=== PATIENT | female | born 1995 | race Caucasian/White ===

== ENCOUNTER 2018-09-11 15:51 | Emergency (ER) | payer OTHER ==
[~2018-09-11] VITALS: Ht 165.1 cm; Wt 44.5 kg
[2018-09-11 16:05] VITALS: BP 119/68
[2018-09-11] MEDS ORDERED: METHOCARBAMOL 750 MG TABLET ONE (16:58)
[2018-09-11] MEDS ORDERED: METHOCARBAMOL 750 MG TABLET PO ONE (17:00)
== END 2018-09-11 17:30 | disposition home or self-care (01) ==
LOC: ED 17:15
DX: G89.11 Acute pain due to trauma (principal); M54.5 Low back pain; M54.10 Radiculopathy, site unspecified
CPT/HCPCS: 72110; 99283